=== PATIENT | female | born 1985 | race American Indian/Alaskan Native ===

== ENCOUNTER 2019-02-12 15:21 | Emergency (ER) | payer OTHER ==
[2019-02-12 15:55] VITALS: TEMP 98.7; BMI 24.8
--- NOTE | 2019-02-12 16:37 | PDOC ---
*Physical Exam - Vital Signs Last Vital Signs Temp Pulse Resp BP Pulse Ox 98.7 F 71 16 103/68 99 02/12/19 15:22 02/12/19 15:22 02/12/19 15:22 02/12/19 15:22 02/12/19 15:22 ED Treatment Course - LABORATORY CBC & Chemistry Diagram: 02/12/19 16:48 02/12/19 16:48 Medical Decision Making - Medical Decision Making 02/12/19 16:37 33 year female at a self reported 7-8 months gestation presents s/p syncopal episode. Translation assistance provided by [employer] members @ bedside. Patient was attending her brother's service earlier today when she felt lightheaded and fainted. Notes a h/o syncopal episodes which she was told was due to her low blood pressure. 02/12/19 17:08 Case d/w Dr. Vaz (synoptic meteorologist) - agrees with plan of care 02/12/19 17:28 synoptic meteorologist RN @ bedside, Doppler shows normal FHT, patient safe for d/c home as per Dr. Vaz *DC/Admit/Observation/Transfer - Referrals Referrals: ON STAFF,NOT [Primary Care Provider] - - Patient Instructions - Post Discharge Activity
--- NOTE | 2019-02-12 16:49 | PDOC ---
History of Present Illness - General Chief Complaint: Syncope/Near Syncope Stated Complaint: Syncope/Near Syncope Time Seen by Provider: 02/12/19 16:08 - History of Present Illness Initial Comments: 02/12/19 17:34 33yo urdu-speaking F hx DM and vasovagal syncope presents from home c/o syncope. Pt is 37 weeks , uncomplicated , regularly visits her Hotel Engineer (unknown name). Pt was at a family member's today and suddenly passed out from standing and stayed down for 5 minutes, not moving but hearing everything being said. Pt states she has a hx of syncope due to low blood pressure once every few months for years and this is the exact same. Pt states her blood pressure is always low. Denies tongue biting, incontinence, seizure- like movements, chest pain, palpitations. Denies head trauma. She is not worried about the syncope but just wanted to make sure the baby's ok. Endorses discomfort in lower back and under belly since her abdomen has grown with the . Also endorses feeling tired now, which pt states is usual after she passes out. Denies any other complaints. Pt states she was in [place] prior to episode. Pt ate and drank today before and after episode. Denies BRIONES, dizziness, vertigo, CP, SOB, F/C, N/V, back pain, neck pain, abdominal pain, blood in stool , D/C, hematuria, dysuria, numbness/tingling, focal weakness, vaginal bleeding, water breaking, contractions, vaginal discharge. Pt states she still feels the baby moving around since the episode. Sister in law Zeynep Duggan is fluent in Lithuanian and Tajik and interprets for pt. Past History - Past Medical History Allergies/Adverse Reactions: Allergies Allergy/AdvReac Type Severity Reaction Status Date / Time No Known Allergies Allergy Verified 02/12/19 15:56 COPD: No - Suicide/Smoking/Psychosocial Hx Smoking History: Unknown if ever smoked Have you smoked in the past 12 months: No Information on smoking cessation initiated: No Hx Alcohol Use: No Drug/Substance Use Hx: No Review of Systems - Review of Systems Comments:: 02/12/19 17:34 Constitutional: Negative for chills, fever, fatigue. HENT: Negative for sore throat, rhinorrhea, congestion. Eyes: Negative for visual disturbance. Respiratory: Negative for shortness of breath, cough, and wheezing. Cardiovascular: Negative for chest pain, palpitations, and leg swelling. Gastrointestinal: Negative for abdominal pain, blood in stool, constipation, diarrhea, nausea, and vomiting. Genitourinary: Negative for dysuria, flank pain, and hematuria. Musculoskeletal: Negative for myalgias, back pain, and neck pain. Skin: Negative for rash. Neurological: Positive for syncope. Negative for light-headedness, dizziness, weakness, numbness and headaches. Psychiatric/Behavioral: Negative for behavioral problems and confusion. *Physical Exam - Vital Signs Last Vital Signs Temp Pulse Resp BP Pulse Ox 98.7 F 71 16 103/68 99 02/12/19 15:22 02/12/19 15:22 02/12/19 15:22 02/12/19 15:22 02/12/19 15:22 - Physical Exam Comments: 02/12/19 17:34 Gen: Alert, NAD, comfortable-appearing. HEENT: PERRL, EOMI, MMM, NCAT. No conjunctival pallor. Sclera are non-icteric. CV: Regular rate and rhythm. No murmurs, rubs, or gallops. PULM: No resp distress. CTAB, no wheezes, rales, or rhonchi. ABD: gravid abdomen, soft, NT, no rebound tenderness or guarding, no CVA tenderness. BACK: No TTP of c/t/l-spine. No step-offs or deformities. MSK: No bony deformities. 2+ pulses in all extremities. NEURO: AAOx3. PERRL. CN 2-12 intact. 5/5 strength in all extremities. Sensation to light touch intact in all extremities. No abnormal nystagmus. Normal gait. EXTREMITIES: No cyanosis. No clubbing. No edema. No calf tenderness. PSYCH: Normal mood and thought pattern. SKIN: Warm and dry. Normal capillary refill. No rashes. No jaundice. Heart Score/ECG Review - ECG Impressions Comment:: 02/12/19 17:34 NSR, 67bpm, normal axis, no ST elevations or depressions, no TWIs. No evidence of arrythmia, ischemia, Muvt-Fierqlfet-Lbmyh (delta wave), Uxik-Ggsqbo-Bupris ( shortened IN interval), Brugada syndrome, long or short QT interval, or HOCM. ED Treatment Course - LABORATORY CBC & Chemistry Diagram: 02/12/19 16:48 02/12/19 16:48 Medical Decision Making - Medical Decision Making 02/12/19 17:34 33yo urdu-speaking F , 37 weeks , hx DM and vasovagal syncope presents from home c/o syncope at . Hemodynamically stable, 103/68 BP which pt states is normal, afebrile. No abnormalities or neurologic deficits on physical exam. No vaginal or abdominal complaints concerning for complication or labor; pt states uncomplicated thus far; will consult cook soup and get Doppler. Episode is most likely vasovagal syncope, due to hx and consistency with prior episodes. No seizure-like activity concerning for seizure. No headache, neurologic deficit, or head trauma concerning for neurologic etiology or intracranial hemorrhage from collapse. Low concern for cardiac etiology due to lack of CP, palpitations, or FHx, and pre-trop HEART score 1, but assess and r/o ACS/ND or arrythmias (WPW, LGL, Brugada, long/short QT interval, HOCM) with EKG and cardiac profile (trop x1). Low concern for PE based on hx/presentation, Wells 0, PERC negative - no further testing indicated for PE. Also consider infectious etiologies, anemia, or metabolic derangements - r/o w/CMP, CBC, and UA/UC. Also consider orthostatic etiology and r/o with orthostatic BPs. -EKG -Labs: CBC, CMP, cardiac profile, UA/UC -Dispo: likely d/c home pending workup Hotel Engineer RN came down to do Doppler and stated ok and cleared by cook soup to go home per Dr Gaines. Will d/c home pending labs. EKG reviewed: NSR, 67bpm, normal axis, no ST elevations or depressions, no TWIs. No evidence of arrythmia, ischemia, Qmxm-Ujeypjhks-Qegjf (delta wave), Quuw-Ydntep-Bdaabz (shortened IN interval), Brugada syndrome, long or short QT interval, or HOCM. Labs reviewed. No concerning findings. POC glucose 113. UA: trace leuk est, WBC 5, bacteria 177. Denies urinary sx. Nurse took orthostatic BPs - no orthostatic hypotension. Informed pt to f/u with cook soup, and to make sure they f/u on the UC. Will dc home with supportive treatment. Return precautions given. Pt understands all dc instructions and all questions were answered. *DC/Admit/Observation/Transfer Diagnosis at time of Disposition: Syncope - Discharge Dispostion Disposition: HOME Condition at time of disposition: Stable Decision to Admit order: No - Referrals Referrals: ON STAFF,NOT [Primary Care Provider] - - Patient Instructions Printed Discharge Instructions: DI for Syncope in Adults (Fainting) Additional Instructions: You have been seen in the Emergency Department for your episode of fainting. Your EKG and labs show no signs concerning for an emergent condition such as a heart attack, abnormal heart rhythm, anemia, or infection. There are no signs of injury to the baby. The cause of your episode is uncertain but it was most likely what's called vasovagal syncope - see below for more information on this. Follow-up with your Hotel Engineer doctor (product management consultant) and with your primary care doctor within 1 week for further evaluation and check-up. Return to the ED immediately if you experience vaginal bleeding, water breaking , contractions, chest pain, difficulty breathing, dizziness, fainting, vomiting , or any other new or worsening symptom. Vasovagal syncope (fainting): To remain conscious, a supply of oxygen-rich blood must be pumped to the brain without interruption. If the brain is deprived of this blood supply, even for a brief period, loss of consciousness (passing out) will occur. One of the most common types of syncope is called vasovagal syncope, which is the most common cause of reflex syncope. A variety of conditions can trigger vasovagal syncope, including physical or psychological stress, dehydration, bleeding, or pain. The heart rate may slow dramatically at the time of the faint, and the blood vessels (mainly the veins) in the body expand, causing blood to pool in the lower extremities and the bowels, resulting in less blood return to the heart and a low blood pressure (hypotension). This causes a decrease in blood flow to the brain. In some cases, vasovagal syncope is triggered by an emotional response to a stimulus, such as fear of injury, heat exposure, the sight of blood, or extreme pain. In other cases, it is caused by abnormal nervous system responses to activities such as urinating, having a bowel movement, coughing, or swallowing. In still other cases, no trigger can be identified. In most cases of vasovagal syncope, you have some warning that you are near fainting. These signs include dizziness, feeling hot or cold, nausea, pale skin , "tunnel-like" vision, disturbance of hearing, and profuse sweating. After the episode, symptoms may continue because of continued low blood pressure. Some people feel extremely tired. - Post Discharge Activity
[2019-02-12 17:12] LABS: EPI CELLS 2.6 /HPF (0-5/HPF); HYALINE CASTS 1 /lpf (0-8); URINE APPEARANCE CLEAR; URINE BILIRUBIN NEGATIVE (NEGATIVE); URINE COLOR YELLOW; URINE GLUCOSE (UA) TRACE (NEGATIVE); URINE KETONE NEGATIVE (NEGATIVE); URINE LEUK ESTERASE TRACE (NEGATIVE); URINE NITRITE NEGATIVE (NEGATIVE); URINE PROTEIN NEGATIVE (NEGATIVE); URINE RBC 0 /hpf (0-4); URINE UROBILINOGEN 0.2 mg/dL (0.2-1.0); URINE WBC 5 /hpf (0-5)
[2019-02-12 17:22] LABS: BASO % 0.4 % (0-2.0); EOS % 0.9 % (0-4.5); HEMATOCRIT 32.7 % (32.4-45.2); HEMOGLOBIN 10.6 GM/dL (10.7-15.3); LYMPH % 25.6 % (8-40); MCH 27.9 pg (25.7-33.7); MCHC 32.3 g/dl (32.0-36.0); MEAN CELL VOLUME 86.4 fl (80-96); MEAN PLT VOLUME 9.9 fl (7.5-11.1); MONO % 7.4 % (3.8-10.2); NEUT % 65.7 % (42.8-82.8); PLATELET COUNT 195 K/MM3 (134-434); RBC 3.78 M/mm3 (3.60-5.2); RDW 13.5 % (11.6-15.6); WHITE BLOOD COUNT 5.9 K/mm3 (4.0-10.0)
[2019-02-12 17:33] LABS: ALBUMIN 2.7 g/dl (3.4-5.0); BILIRUBIN,TOTAL 0.3 mg/dL (0.2-1); CALCIUM 8.8 mg/dL (8.5-10.1); CREATININE 0.5 mg/dL (0.55-1.3); TOT PROT 6.2 g/dl (6.4-8.2)
--- NOTE | 2019-02-12 17:53 | PDOC ---
Documentation entered by Darian Torres SCRIBE, acting as scribe for Lo Sam MD. Lo aSm MD: This documentation has been prepared by the Brian jackson Renju, SCRIBE, under my direction and personally reviewed by me in its entirety. I confirm that the documentation accurately reflects all work, treatment, procedures, and medical decision making performed by me. Attending Attestation - Resident Resident Name: Vee Astudillo - ED Attending Attestation I have performed the following: I have examined & evaluated the patient, The case was reviewed & discussed with the resident, I agree w/resident's findings & plan, Exceptions are as noted - HPI HPI: 02/12/19 16:37 Ms. Anguiano presents to the ER s/p syncope. She is a 33 year old croatian speaking female currently 37 weeks with a past medical history of diabetes who presents to the emergency department for evaluation s/p syncope at [facility] this afternoon. Patient states she syncopized for five minutes. She endorses intermittent syncopal episodes that occur once every few months. No seizure like activity. No chest pain. Allergies: No known allergies Shx: None. Social: Denies EtOH, tobacco and substance abuse. - Physicial Exam PE: 02/12/19 16:38 GENERAL: The patient is in no acute distress. HEAD: Normal with no signs of trauma. EYES: PERRLA, EOMI, sclera anicteric, conjunctiva clear. ENT: Ears normal, nares patent, oropharynx clear without exudates. Moist mucous membranes. NECK: Normal range of motion, supple without midline tenderness LUNGS: Breath sounds equal, clear to auscultation bilaterally. No wheezes, and no crackles. HEART:Regular rate and rhythm, normal S1 and S2 without murmur, rub or gallop. ABDOMEN: Gravid abdomen, nontender. No guarding, no rebound. No masses palpable. EXTREMITIES: Normal range of motion, no edema. NEUROLOGICAL: Cranial nerves II through XII grossly intact. Normal speech. No focal neurological deficits. MUSCULOSKELETAL: Back non-tender to palpation SKIN: Warm, Dry, normal turgor, no rashes or lesions noted. 02/13/19 08:14 - Medical Decision Making 02/12/19 17:47 33 yo F presenting with a complaint of syncope Pt was at a and syncopized No chest pain No shortness of breath Pt presents to the ER to assess baby No tongue biting No bowel or bladder incontinence EKG - Twelve-lead EKG was performed and reviewed by me. There is normal sinus rhythm with a normal rate. The axis is normal. The intervals are normal. There are no ST or T wave abnormalities. Impression: Normal twelve-lead EKG 02/12/19 17:49 Laboratory Tests 02/12/19 02/12/19 02/12/19 16:48 16:48 16:48 WBC 5.9 Hgb 10.6 L Hct 32.7 Plt Count 195 BUN 8.0 Creatinine 0.5 L Random Glucose 140 H Creatine Kinase 103 Troponin I < 0.02 Urine Blood Urine Nitrite Ur Leukocyte Esterase Urine WBC (Auto) Urine RBC (Auto) U Epithel Cells (Auto) 02/12/19 16:48 WBC Hgb Hct Plt Count BUN Creatinine Random Glucose Creatine Kinase Troponin I Urine Blood Negative Urine Nitrite Negative Ur Leukocyte Esterase Trace Urine WBC (Auto) 5 Urine RBC (Auto) 0 U Epithel Cells (Auto) 2.6 Pt seen in the ER by OB Will plan to discharge to home Follow up with OB Return to the ER for any other concerns or complaints Clinical impression: vasovagal syncope, initial presentation
[2019-02-12 18:10] VITALS: BP 83/66; PULSE 68
--- NOTE | 2019-02-13 10:36 | EKG ---
Test Reason : Blood Pressure : / mmHG Vent. Rate : 067 BPM Atrial Rate : 067 BPM P-R Int : 124 ms QRS Dur : 070 ms QT Int : 424 ms P-R-T Axes : 029 013 024 degrees QTc Int : 448 ms NORMAL SINUS RHYTHM NORMAL ECG NO PREVIOUS ECGS AVAILABLE Confirmed by DANI RICO, QUNITEN ([id number]) on 02/13/2019 10:36:25 AM Referred By: Confirmed By:QUINTEN LOUISE MD
== END 2019-02-12 18:16 | disposition home or self-care (01) ==
LOC: JER 15:21
DX: O26.893 Other specified pregnancy related conditions, third trimester (principal); R55 Syncope and collapse; Z3A.37 37 weeks gestation of pregnancy; O24.313 Unspecified pre-existing diabetes mellitus in pregnancy, third trimester; E11.9 Type 2 diabetes mellitus without complications
CPT/HCPCS: 36415; 80053; 81003; 82550; 82962; 84484; 85025; 87086; 93005; 93010; 99283-25

== ENCOUNTER 2019-04-09 04:45 | Inpatient (IN) | payer OTHER ==
[2019-04-09] MEDS ORDERED: OXYTOCIN 10 UNITS/ML VIAL ONE (06:22)
[2019-04-09] MEDS ORDERED: LIDOCAINE HCL 1% PRESERVATIVE FREE - 30ML VIAL ONE (06:27)
[2019-04-09] MEDS ORDERED: BENZOCAINE 28 GM HEMORRHOIDAL OINTMENT TP PRN (06:43)
[2019-04-09] MEDS ORDERED: BENZOCAINE 20% 57 GM BOTTLE TP PRN (06:43)
[2019-04-09] MEDS ORDERED: WITCH HAZEL 50% (TUCKS) 40 PAD/JAR PAD TP PRN (06:43)
[2019-04-09] MEDS ORDERED: BISACODYL 10 MG SUPP.RECT RC PRN (06:43)
[2019-04-09] MEDS ORDERED: OXYTOCIN 10 UNITS/ML VIAL IM ONE (06:47)
[2019-04-09] MEDS ORDERED: MISOPROSTOL 200 MCG TABLET PV ONE (06:48)
--- NOTE | 2019-04-09 06:55 | HP ---
Past Medical History - Primary Care Physician PCP:: Ignacio Gonzalez - Admission Chief Complaint: labor, ready to deliver History Source: Patient Limitations to Obtaining History: Other (language barrier) - Past Medical History RAGMAN: No: Alzheimer's, CVA, Dementia, Migraine, Multiple Sclerosis, Peripheral Neuropathy, Parkinson's, Seizure, Syncope, TIA, Vertigo, Other Cardiovascular: No: AFIB, Aneurysm, Aortic Insufficiency, Aortic Stenosis, CAD, CHF, Deep Vein Thrombosis, HTN, Hyperlipdemia, [place], Mitral Insufficiency, Mitral Stenosis, Murmur, Pulmonary Hypertension, Other Pulmonary: No: Asthma, Bronchitis, Cancer, COPD, O2 Dependent, Pneumonia, Previously Intubated, Pulmonary Embolus, Pulmonary Fibrosis, Sleep Apnea, Other Gastrointestinal: No: Ascites, Cancer, Constipation, Crohn's Disease, Diverticulitis, Diverticulosis, Esophageal Varices, Gastritis, GERD, GI Bleed, Hemorrhoids, Hiatal Hernia, Inflamatory Bowel Disease, Irritable Bowel Disease, Pancreatitis, Peptic Ulcer Disease, Ulcerative Colitis, Other Hepatobiliary: No: Cirrhosis, Cholelithiasis, Cholecystitis, Choledocholithiasis , Hepatitis A, Hepatitis B, Hepatitis C, Other Renal/: No: Renal Failure, Renal Inusuff, BPH, Cancer, Hematuria, Hemodialysis , Neurogenic Bladder, Renal Calculi, UTI, Other Reproductive: No: Ectopic , Endometriosis, Fibroids, PID, Polycystic Ovary Syndrome, Postmenopausal, Other ...: 2 ...Para: 1 ...Term: 1 ...: 0 ...Spon : 0 ...Induced : 0 ... Weeks Gestation by Dates: 39.4 ...EDC by Dates: 04/13/19 Heme/Onc: No: Anemia, B12 Deficiency, Bleeding Disorder, Cancer, Current Chemotherapy, Current Radiation Therapy, Hemochromatosis, Hypercoaguable State, Myeloproliferative Synd, Sickle Cell Disease, Sickle Cell Trait, Thrombocytopenia, Other Infectious Disease: No: AIDS, C-Diff, Herpes Zoster, HIV, MRSA, STD's, Tuberculosis, VREF, Other Psych: No: Addictions, Anxiety, Bipolar, Depression, Panic, Psychosis, Schizophrenia, Other Musculoskeletal: No: Bursitis, Chronic low back pain, Hemiparesis, Hemiplegia, Osteoarthritis, Paraplegia, Other Rheumatology: No: Fibromyalgia, Gout, Lupus, Rheumatoid Arthritis, Sarcoidosis, Vasculitis, Other ENT: No: Allergic Rhinitis, Sinusitis, Other Endocrine: No: Hanalei's Disease, [place]'s Disease, Diabetes Insipidus, Diabetes Mellitus, Hyperparathyroidism, Hyperthyroidism, Hypothyroidism, Osteopenia, SIADH, Other Dermatology: No: Basal Cell, Cellulitis, Eczema, Melanoma, Psoriasis, Squamous Cell, Other - Past Surgical History Past Surgical History: Yes: Hernia Repair Hx Myomectomy: No Hx Transabdominal Cerclage: No - Smoking History Smoking history: Never smoked Have you smoked in the past 12 months: No - Alcohol/Substance Use Hx Alcohol Use: No Home Medications - Allergies Allergies/Adverse Reactions: Allergies Allergy/AdvReac Type Severity Reaction Status Date / Time No Known Allergies Allergy Verified 04/09/19 05:27 - Home Medications Home Medications: Ambulatory Orders Metformin HCl [Glucophage] 500 mg PO BID 04/09/19 Review of Systems Unable to obtain ROS, reason: patient ready to deliver Physical Exam - Maternity Vital Signs: Vital Signs Temperature 98.4 F 04/09/19 05:29 Pulse Rate 69 04/09/19 05:29 Respiratory Rate 20 04/09/19 05:29 Blood Pressure 125/75 04/09/19 05:29 O2 Sat by Pulse Oximetry (%) Constitutional: Yes: Well Nourished HENT: Yes: Atraumatic, Normocephalic Neck: Yes: Supple Cardiovascular: Yes: Regular Rate and Rhythm Breast(s): Yes: Other (deferred) - Abdominal Exam/OB Number of Fetuses: Single Presentation: Vertex Contractions: Yes Regularity: Regular Intensity: Strong Monitor Mode: External Heart Rate (range): 130 Category: I Accelerations: None Decelerations: None (non-continuous) - Vaginal Exam/OB Vaginal Bleediing: Bloody Show Speculum Exam: No Dilatation (cm): 10 Effacement (%): 100 Amniotic Membrane Status: Ruptured Presentation: Vertex/Position (Bedside sono: cephalic, OA, Fundal/ anterior placenta) - Physical Exam Musculoskeletal: Yes: WNL Extremities: Yes: WNL Edema: No Edema: LLE: Trace, RLE: Trace ...Motor Strength: WNL Psychiatric: Yes: Alert, Oriented Hemorrhage Risk Assessment - Risk Factors Assessment/Plan: Precipitous labor Assessment/Plan 33 y/o @ 39.3wks by COLLEEN of 04/13/19 as per patient, external health care provider and no available documentation, fully dilated ready to deliver, A2GDM on metformin. -Admit -Anticipate VD -Release of info for records -Admission labs -Uterotonics prophylactic
--- NOTE | 2019-04-09 07:09 | PN ---
Delivery - Delivery Episiotomy/Laceration: 1st degree EBL (cc): 150 Delivery, Single - Stages of Labor Placenta: Yes: Spontaneous - Condition of Infant Pricing Associate/Piling Cutter Present: No Gender: Female Position: OA - [place] Feeding Plan Initial Plan: Elected not to breastfeed exclusively throughout hospitalization Remarks - Remarks Remarks: head and body delivered precipitously OA. Loose nuchal cord noted and removed. was suctioned out and delayed cord clamped took place. Segment for gases and blood obtained. Placenta delivered spontaneously and intact. Exam revealed superficial 1st degree with mild oozing requiring figure eight stitch repair with 3.0 Polysorb. Excellent hemostasis noted and fundus is firm. 10 U oxytocin IM administered as well as 1000mcg misoprostol OH administered prophylactically. Sponge/instrument count is correct x 2.
[2019-04-09 09:35] LABS: BASO % 0.2 % (0-2.0); EOS % 0.2 % (0-4.5); HEMATOCRIT 34.1 % (32.4-45.2); HEMOGLOBIN 10.7 GM/dL (10.7-15.3); MCH 25.4 pg (25.7-33.7); MCHC 31.4 g/dl (32.0-36.0); MEAN CELL VOLUME 80.8 fl (80-96); MEAN PLT VOLUME 10.1 fl (7.5-11.1); MONO % 3.3 % (3.8-10.2); NEUT % 84.3 % (42.8-82.8); PLATELET COUNT 194 K/MM3 (134-434); RBC 4.21 M/mm3 (3.60-5.2); RDW 14.7 % (11.6-15.6); WHITE BLOOD COUNT 10.2 K/mm3 (4.0-10.0)
[2019-04-09 09:45] LABS: INR 0.94 (0.83-1.09); PROTHROMBIN TIME (PATIENT) 11.1 SEC (9.7-13.0)
[2019-04-09] MEDS: IBUPROFEN 600 MG TABLET (FP) PO PRN ×2 (09:56→15:13)
[2019-04-09] MEDS: ACETAMINOPHEN 325 MG TABLET (FP) PO PRN ×2 (09:56→14:55)
[2019-04-09 10:09] LABS: ALBUMIN 2.6 g/dl (3.4-5.0); BILIRUBIN,TOTAL 0.2 mg/dL (0.2-1); BLOOD UREA NITROGEN 9.5 mg/dL (7-18); CALCIUM 8.5 mg/dL (8.5-10.1); CREATININE 0.6 mg/dL (0.55-1.3); TOT PROT 5.9 g/dl (6.4-8.2)
[2019-04-10 07:49] LABS: BASO % 0.3 % (0-2.0); EOS % 1.2 % (0-4.5); HEMATOCRIT 33.1 % (32.4-45.2); HEMOGLOBIN 10.3 GM/dL (10.7-15.3); LYMPH % 25.1 % (8-40); MCH 25.3 pg (25.7-33.7); MCHC 31.2 g/dl (32.0-36.0); MEAN PLT VOLUME 9.6 fl (7.5-11.1); MONO % 6.9 % (3.8-10.2); NEUT % 66.5 % (42.8-82.8); PLATELET COUNT 186 K/MM3 (134-434); RBC 4.09 M/mm3 (3.60-5.2); WHITE BLOOD COUNT 6.7 K/mm3 (4.0-10.0)
--- NOTE | 2019-04-10 08:08 | PN ---
Post Progress Note - Subjective Subjective: c/o cramps Post Day: 1 Type of Delivery: Vital Signs: Vital Signs Temperature 98.4 F 04/09/19 22:00 Pulse Rate 78 04/09/19 22:00 Respiratory Rate 18 04/09/19 22:00 Blood Pressure 101/66 04/09/19 22:00 O2 Sat by Pulse Oximetry (%) 99 04/09/19 07:30 Breast Exam: Yes: Soft, Other (BF & bottle feeding ). No: Engorged Uterus: Yes: Fundus Firm, Fundus below umbilicus Lochia: Yes: Rubra Lochia, amount: Moderate Extremities: Yes: Calves non-tender Perineum: Yes: Intact Activity: Ambulating - Labs Labs: CBC WBC 10.2 K/mm3 (4.0-10.0) H 04/09/19 08:55 RBC 4.21 M/mm3 (3.60-5.2) 04/09/19 08:55 Hgb 10.7 GM/dL (10.7-15.3) 04/09/19 08:55 Hct 34.1 % (32.4-45.2) 04/09/19 08:55 MCV 80.8 fl (80-96) 04/09/19 08:55 MCH 25.4 pg (25.7-33.7) L 04/09/19 08:55 MCHC 31.4 g/dl (32.0-36.0) L 04/09/19 08:55 RDW 14.7 % (11.6-15.6) 04/09/19 08:55 Plt Count 194 K/MM3 (134-434) 04/09/19 08:55 MPV 10.1 fl (7.5-11.1) 04/09/19 08:55 Absolute Neuts (auto) 8.6 K/mm3 (1.5-8.0) H 04/09/19 08:55 Neutrophils % 84.3 % (42.8-82.8) H D 04/09/19 08:55 Lymphocytes % 12.0 % (8-40) D 04/09/19 08:55 Monocytes % 3.3 % (3.8-10.2) L 04/09/19 08:55 Eosinophils % 0.2 % (0-4.5) 04/09/19 08:55 Basophils % 0.2 % (0-2.0) 04/09/19 08:55 Nucleated RBC % 0 % (0-0) 04/09/19 08:55 Laboratory Tests 04/10/19 06:20 POC Glucometer 128 Problem List - Problems (1) Encounter for care after planned out of hospital delivery Code(s): Z39.2 - ENCOUNTER FOR ROUTINE FOLLOW-UP Assessment/Plan pp stable pp cbc pending discharge padmini
[2019-04-10] MEDS: IBUPROFEN 600 MG TABLET (FP) PO PRN ×2 (09:27→21:41)
[2019-04-10] MEDS: ACETAMINOPHEN 325 MG TABLET (FP) PO PRN ×2 (09:28→21:41)
[2019-04-10] MEDS ORDERED: SENNOSIDES/DOCUSATE COMBO (SENNA PLUS) TABLET (UD) PO PRN (22:00)
[2019-04-11] MEDS: ACETAMINOPHEN 325 MG TABLET (FP) PO PRN (06:26)
[2019-04-11] MEDS: IBUPROFEN 600 MG TABLET (FP) PO PRN (06:27)
--- NOTE | 2019-04-11 06:51 | DS ---
Physical Examination Vital Signs: Vital Signs Temperature 98.3 F 04/10/19 22:00 Pulse Rate 73 04/10/19 22:00 Respiratory Rate 18 04/10/19 22:00 Blood Pressure 103/67 04/10/19 22:00 O2 Sat by Pulse Oximetry (%) 99 04/09/19 07:30 Constitutional: Yes: Well Nourished, No Distress, Calm Eyes: Yes: WNL, Conjunctiva Clear, EOM Intact HENT: Yes: WNL, Atraumatic, Normocephalic Neck: Yes: WNL, Supple, Trachea Midline Cardiovascular: Yes: WNL, Regular Rate and Rhythm Respiratory: Yes: WNL, Regular, CTA Bilaterally Gastrointestinal: Yes: WNL, Normal Bowel Sounds Musculoskeletal: Yes: WNL Extremities: Yes: WNL Edema: No Integumentary: Yes: WNL Neurological: Yes: WNL, Alert, Oriented ...Motor Strength: WNL Psychiatric: Yes: WNL Labs: CBC, BMP 04/10/19 07:32 04/09/19 08:55 Discharge Summary Problems reviewed: Yes Reason For Visit: LABOR ADMIT Current Active Problems Encounter for care after planned out of hospital delivery (Acute) Procedures: Principal: Hospital Course: Patient presented in active labor and had a precipitous delivery She has met all milestones She was discharged home in stable condition Latasha Joaquin MD Condition: Stable - Instructions Diet, Activity, Other Instructions: Regular Diet Follow up in 4-6 weeks Referrals: Ignacio Gonzalez MD [Staff Physician] - Disposition: HOME - Home Medications Comprehensive Discharge Medication List: Ambulatory Orders Metformin HCl [Glucophage] 500 mg PO BID 04/09/19 Ibuprofen 600 mg PO Q6H PRN #30 tablet 04/11/19
[2019-04-11 11:35] VITALS: BP 107/59; PULSE 76; TEMP 97.8
== END 2019-04-11 12:40 | disposition home or self-care (01) | DRG 560 ==
LOC: JDEL 04:45 → JLDR 06:05 → J3W 09:25
PROVIDERS: ADMIT Student in an Organized Health Care Education/Training Program; ATTEND Student in an Organized Health Care Education/Training Program
PROC: 0HQ9XZZ Repair Perineum Skin, External Approach (ICD-10-PCS; principal; 2019-04-09)
PROC: 10E0XZZ Delivery of Products of Conception, External Approach (ICD-10-PCS; 2019-04-09)
DX: O70.0 First degree perineal laceration during delivery (principal); Z3A.39 39 weeks gestation of pregnancy; Z37.0 Single live birth
CPT/HCPCS: 36415; 36600; 59409; 80053; 82803; 82962; 85025; 85610; 85730; 86593; 86762; 86850; 86900; 86901; 87340; 87389

== ENCOUNTER 2022-09-03 15:21 | Emergency (ER) | payer OTHER ==
[2022-09-03 15:41] VITALS: BP 109/70; PULSE 132; RESP 22; TEMP 97; BMI 28.9
[2022-09-03] MEDS ORDERED: DEXAMETHASONE SOD PHOSPHATE 10 MG/1 ML VIAL IM ONE (16:26)
[2022-09-03] MEDS ORDERED: KETOROLAC TROMETHAMINE 30 MG/1 ML VIAL IM ONE (16:26)
[2022-09-03] MEDS ORDERED: KETOROLAC TROMETHAMINE 30 MG/1 ML VIAL ONE (16:31)
[2022-09-03] MEDS ORDERED: DEXAMETHASONE SOD PHOSPHATE 10 MG/1 ML VIAL ONE (16:32)
[2022-09-03] MEDS ORDERED: IBUPROFEN 600 MG TABLET (FP) PO ONE ×2 (16:42)
[2022-09-03 16:58] LABS: THROAT:GRP A STREP NOT DETECTED (NOTDETECTED)
== END 2022-09-03 17:15 | disposition home or self-care (01) ==
LOC: JERFT 15:21 → JER 15:21 → JERFT 17:15
PROC: 3E0233Z Introduction of Anti-inflammatory into Muscle, Percutaneous Approach (ICD-10-PCS; principal; 2022-09-03)
DX: R05.1 Acute cough (principal); J02.9 Acute pharyngitis, unspecified; R06.7 Sneezing; Z20.822 Contact with and (suspected) exposure to COVID-19
CPT/HCPCS: 0241U-QW; 87651; 99284-25; J1100